=== PATIENT | female | born 1980 | race Caucasian/White ===

== ENCOUNTER 2019-04-18 23:27 | Emergency (ER) | payer OTHER ==
--- NOTE | 2019-04-18 23:45 | PDOC ---
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 She was seen in urgent care earlier today and was told to follow-up immediately at an emergency room. She describes that anterior chest pain as intermittent, worse with movement. No shortness of breath, nausea/diaphoresis/radiation of pain. She has some chest wall tenderness, typical of her fibromyalgia pain. Her headache has also been present for 1 day; right-sided, with feeling of pressure and mild photophobia. No clear history of migraine diagnosis. Patient states that she had 2-3 days of watery diarrhea earlier this week. This resolved over the last 48 hours. No abdominal pain currently No history of HTN/DM/hyperlipidemia/relief family history of cardiac disease. Denies smoking. Patient states that she has been told in the past that her EKG showed signs of a "heart attack". She has no previous history of stress test/cardiac catheterization Past History - Past Medical History Allergies/Adverse Reactions: Allergies Allergy/AdvReac Type Severity Reaction Status Date / Time No Known Allergies Allergy Unverified 04/18/19 23:30 Home Medications: Ambulatory Orders Alprazolam 2 mg PO TID PRN 04/18/19 Bupropion HCl [Wellbutrin Xl -] 150 mg PO DAILY 04/18/19 Bupropion HCl [Wellbutrin Xl] 300 mg PO DAILY 04/18/19 Cyclobenzaprine HCl 10 mg PO TID PRN 04/18/19 Doxepin HCl [Silenor] 6 mg PO DAILY 04/18/19 Gabapentin 600 mg PO TID 04/18/19 Levothyroxine Sodium 300 mcg PO DAILY 04/18/19 Lurasidone HCl [Latuda] 120 mg PO DAILY 04/18/19 Mesalamine [Lialda] 1.2 gm PO DAILY 04/18/19 Multivitamin [Multiple Vitamins] 1 each PO DAILY 04/18/19 Oxycodone HCl/Acetaminophen [Endocet 10-325 mg Tablet] 1 each PO PRN PRN Pantoprazole Sodium [Protonix -] 20 mg PO DAILY 04/18/19 Vortioxetine Hydrobromide [Trintellix] 20 mg PO DAILY 04/18/19 Zolpidem Tartrate [Ambien] 12.5 mg PO HS 04/18/19 Review of Systems - Review of Systems Able to Perform ROS?: Yes Comments:: 12 point review of systems is negative except for what is noted in the history of present illness *Physical Exam - Physical Exam Comments: GENERAL: Adult female, alert and oriented 3, in no acute distress HEAD: Normal with no signs of trauma. EYES: PERRLA, EOMI, sclera anicteric, conjunctiva clear. ENT: Ears normal, nares patent, oropharynx clear without exudates. Moist mucous membranes. NECK: Normal range of motion, supple without lymphadenopathy, JVD, or masses. LUNGS: Breath sounds equal, clear to auscultation bilaterally. No wheezes, and no crackles. CHEST WALL: Mild tenderness to palpation anterior second to third IC space right and left sides; mild tenderness to proximal portion of sternum HEART:Regular rate and rhythm, normal S1 and S2 without murmur, rub or gallop. ABDOMEN:.normal bowel sounds No guarding,tenderness or rebound.No masses No distention. EXTREMITIES: Normal range of motion, no edema. No clubbing or cyanosis. No erythema, or tenderness. NEUROLOGICAL: Cranial nerves II through XII grossly intact. Normal speech. No focal neurological deficits. MUSCULOSKELETAL: Back non-tender to palpation, no CVA tenderness SKIN: Warm, Dry, normal turgor, no rashes or lesions noted. Twelve-lead electrocardiogram is performed. Preliminary interpretation by me: Normal sinus rhythm at 67 bpm. [place] is normal. There is T-wave flattening V3/4 /5. QTc is mildly prolonged at [address] abnormality seen. No acute cardiac arrhythmia seen. No previous EKG tracing is available for comparison ED Treatment Course - LABORATORY CBC & Chemistry Diagram: 04/19/19 00:54 04/19/19 00:54 Medical Decision Making - Medical Decision Making This 38-year-old woman with multiple medical problems (but no clear previous cardiovascular history) sent here from urgent care with a one-day history of intermittent chest pain. She also has right-sided headache for the last day. Chest pain is mainly positional and she does have some chest wall tenderness. No history of trauma or overuse. Exam as noted with nonspecific twelve-lead electrocardiogram (no comparisons available). Patient does not have any clear risk factors for coronary artery disease. However, since she does have flattened T waves, we will send troponin as well as a CBC and chemistry profile. Meanwhile, 1 gm acetaminophen IV and 10 mg Reglan IVPB be given along with a liter normal saline IV to treat her right- sided headache which has some characteristics of migraine. Laboratory evaluation reveals mild anemia; chemistry is essentially normal except for blood sugar of 65. Troponin is not elevated. Patient states that she has a history of anemia, unclear etiology and not under current treatment. She has no knowledge of episodes of hypoglycemia but states that prior to her bariatric surgery she had borderline diabetes mellitus. She states that she had eaten dinner just prior to her arrival in the emergency room. Patient was given 8 ounces of orange juice. Repeat fingerstick glucose 87 Patient states that her headache is largely resolved and she is no longer feeling her chest pain. Patient will be discharged with follow-up with her PMD within the next 2-3 days. She should return to ER if she has severe chest pain or persistent headache. Meanwhile, she should continue her medications as prescribed Discharge - Discharge Information Problems reviewed: Yes Clinical Impression/Diagnosis: Atypical chest pain Headache Qualifiers: Headache type: unspecified Headache chronicity pattern: acute headache Intractability: not intractable Qualified Code(s): R51 - Headache Condition: Stable Disposition: HOME - Follow up/Referral - Patient Discharge Instructions Patient Printed Discharge Instructions: DI for Atypical Chest Pain Additional Instructions: Continue your medications as prescribed Rest; drink plenty fluids Follow-up with your doctor within the next 3-4 days as discussed Return to ER if you have persistent chest pain or severe headache - Post Discharge Activity
[2019-04-18 23:49] VITALS: BP 150/91; PULSE 78; TEMP 98.5; BMI 24.7
[2019-04-19] MEDS ORDERED: ACETAMINOPHEN 1000 MG/100 ML VIAL (NON FORMULARY) IVPB ONE (00:45)
[2019-04-19] MEDS ORDERED: METOCLOPRAMIDE HCL INJECTION 10 MG/2 ML VIAL IVPB ONE (00:45)
[2019-04-19] MEDS ORDERED: ACETAMINOPHEN INJECTION 100 ML IVPB ONE (00:47)
[2019-04-19] MEDS ORDERED: METOCLOPRAMIDE HCL INJECTION 10 MG/2 ML VIAL ONE (00:47)
[2019-04-19 01:56] LABS: BASO % 1.3 % (0-2.0); EOS % 4.3 % (0-4.5); HEMATOCRIT 30.8 % (32.4-45.2); HEMOGLOBIN 9.8 GM/dL (10.7-15.3); LYMPH % 26.4 % (8-40); MCH 25.1 pg (25.7-33.7); MCHC 31.7 g/dl (32.0-36.0); MEAN PLT VOLUME 9.5 fl (7.5-11.1); MONO % 7.5 % (3.8-10.2); NEUT % 60.5 % (42.8-82.8); PLATELET COUNT 302 K/MM3 (134-434); WHITE BLOOD COUNT 7.5 K/mm3 (4.0-10.0)
[2019-04-19 02:25] LABS: ALBUMIN 3.6 g/dl (3.4-5.0); ALK PHOS 64 U/L (45-117); ANION GAP 7 MMOL/L (8-16); BILIRUBIN,TOTAL 0.3 mg/dL (0.2-1); BLOOD UREA NITROGEN 9.8 mg/dL (7-18); CALCIUM 9.2 mg/dL (8.5-10.1); CHLORIDE 109 mmol/L (98-107); CO2 27 mmol/L (21-32); CREATININE 0.8 mg/dL (0.55-1.3); GLUCOSE,RANDOM 65 mg/dL (74-106); POTASSIUM 3.9 mmol/L (3.5-5.1); SGOT/AST 49 U/L (15-37); SGPT/ALT 37 U/L (13-61); SODIUM 143 mmol/L (136-145)
--- NOTE | 2019-04-21 13:24 | EKG ---
Test Reason : Blood Pressure : / mmHG Vent. Rate : 067 BPM Atrial Rate : 067 BPM P-R Int : 130 ms QRS Dur : 102 ms QT Int : 438 ms P-R-T Axes : 031 042 051 degrees QTc Int : 462 ms NORMAL SINUS RHYTHM NONSPECIFIC T WAVE ABNORMALITY PROLONGED QT ABNORMAL ECG NO PREVIOUS ECGS AVAILABLE Confirmed by ROSALIND LEMON MD ([id number]) on 04/21/2019 1:24:07 PM Referred By: MD RICHEY Confirmed By:ROSALIND LEMON MD
== END 2019-04-19 02:50 | disposition home or self-care (01) ==
LOC: FER 23:27
PROC: 3E033NZ Introduction of Analgesics, Hypnotics, Sedatives into Peripheral Vein, Percutaneous Approach (ICD-10-PCS; principal; 2019-04-18)
PROC: 3E033GC Introduction of Other Therapeutic Substance into Peripheral Vein, Percutaneous Approach (ICD-10-PCS; 2019-04-18)
DX: R07.89 Other chest pain (principal); R51 Headache; Z98.84 Bariatric surgery status
CPT/HCPCS: 36415; 80053; 82550; 82962; 84484; 85025; 93005; 96374; 96375; 99283-25; J0131

== ENCOUNTER 2020-11-26 21:17 | Emergency (ER) | payer OTHER ==
[2020-11-26 21:29] VITALS: BP 185/100; PULSE 64; TEMP 98.7; BMI 23.4
[2020-11-26] MEDS ORDERED: SODIUM CHLORIDE 1,000 ML IV STA (21:44)
[2020-11-26] MEDS ORDERED: ALPRAZolam 1 MG TABLET PO SCH (21:45)
[2020-11-26] MEDS ORDERED: ALPRAZolam 0.25 MG TABLET ONE (21:53)
[2020-11-26 22:40] LABS: BASO % 1.6 % (0-2.0); EOS % 2.4 % (0-4.5); HEMOGLOBIN 11.4 GM/dl (10.7-15.3); MCH 25.9 pg (25.7-33.7); MCHC 32.7 g/dl (32.0-36.0); MEAN CELL VOLUME 79.1 fl (80-96); MEAN PLT VOLUME 10.1 fl (7.5-11.1); PLATELET COUNT 304 K/MM3 (134-434); RBC 4.42 M/mm3 (3.60-5.2); RDW 16.2 % (11.6-15.6); WHITE BLOOD COUNT 6.7 K/mm3 (4.0-10.8)
[2020-11-26 22:41] LABS: ALBUMIN 4.2 g/dl (3.4-5.0); BILIRUBIN,TOTAL 0.8 mg/dl (0.2-1); CALCIUM 9.6 mg/dl (8.5-10); CREATININE 0.7 mg/dl (0.55-1.3); TOT PROT 7.6 g/dl (6.4-8.2)
[2020-11-26 22:57] LABS: INR 1.17 (0.82-1.09)
== END 2020-11-26 23:40 | disposition home or self-care (01) ==
LOC: FER 21:17
PROC: 3E0337Z Introduction of Electrolytic and Water Balance Substance into Peripheral Vein, Percutaneous Approach (ICD-10-PCS; principal; 2020-11-26)
DX: M25.511 Pain in right shoulder (principal); R51.9 Headache, unspecified
CPT/HCPCS: 36415; 70450-TC; 71045-TC-FY; 80053; 81003; 82550; 84484; 85025; 85610; 87086; 93005; 99285-25